=== PATIENT | male | born 1980 | race Caucasian/White ===

== ENCOUNTER 2019-07-31 14:56 | Emergency (ER) | payer SELFPAY ==
[~2019-07-31] VITALS: Ht 188 cm; Wt 101.7 kg
[2019-07-31 14:59] VITALS: BP 182/100
--- NOTE | 2019-07-31 15:42 | NUR ---
Rhonda negrete in [facility] - 07/31/19 at 1543 by KAVITHA TAX AGENT: PT TO ROOM FROM [facility]
--- NOTE | 2019-07-31 15:45 | NUR ---
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
--- NOTE | 2019-07-31 16:14 | NUR ---
Patient given discharge instructions and they have confirmed that they understand the instructions. Patient ambulatory with steady gait.
== END 2019-07-31 16:39 | disposition home or self-care (01) ==
LOC: ED 16:30
DX: R10.84 Generalized abdominal pain (principal)
CPT/HCPCS: 93005; 99283